=== PATIENT | female | born 1960 | race Caucasian/White ===

== ENCOUNTER 2023-11-17 15:26 | Emergency (ER) | payer OTHER, SELFPAY ==
[2023-11-17 15:31] VITALS: BP 153/99
[2023-11-17 15:52] LABS: % Basophils 0.8 % (0-2); % Immature Granulocytes 0.1 % (0-0.5); % Lymphocytes 25.9 % (20.5-51.1); % Monocytes 10.5 % (1.7-9.3); % Neutrophils 60.7 % (42.2-75.2); Absolute Basophils 0.1 10^3/uL (0-0.2); Absolute Eosinophils 0.2 10^3/uL (0-0.7); Absolute Monocytes 0.8 10^3/uL (0.1-0.6); Absolute Neutrophils 4.7 10^3/uL (1.4-6.5); Hematocrit 37.1 % (37.0-47.0); Hemoglobin 12.3 g/dL (12.0-16.0); Mean Corp Hgb Conc. 33.2 g/dL (33.0-37.0); Mean Corpuscular Hgb 29.4 pg (27.0-31.0); Mean Corpuscular Volume 88.5 fL (81.0-99.0); Mean Platelet Volume 10.2 fL (7.4-10.4); Nucleated Red Blood Cells % 0 %; Platelet Count 277 10^3/uL (130-400); Red Blood Cell Count 4.19 10^6/uL (4.20-5.40); White Blood Cell Count 7.7 10^3/uL (4.8-10.8)
[2023-11-17 16:07] LABS: ALT (SGPT) 22 U/L (0-35); AST (SGOT) 33 U/L (14-36); Albumin 4.5 g/dl (3.5-5.0); Alkaline Phosphatase 53 U/L (38-126); Blood Urea Nitrogen 18 mg/dl (7-17); Calcium 9.6 mg/dl (8.4-10.2); Carbon Dioxide 25 mmol/L (22-30); Chloride 107 mmol/L (98-107); Glucose 93 mg/dl (70-99); Lipase 33 U/L (23-300); Potassium 4.2 mmol/L (3.5-5.1); Sodium 137 mmol/L (135-145); Total Bilirubin 0.6 mg/dl (0.2-1.3); Total Protein 7.2 g/dl (6.3-8.2); eGFR > 60.00
[2023-11-17 18:10] LABS: Urine Albumin Negative (Neg - Trace); Urine Bilirubin Negative (Negative); Urine Character Clear (Clear); Urine Color Yellow; Urine Glucose Negative (Negative); Urine Ketone Negative (Negative); Urine Leukocyte Trace (Negative); Urine Nitrite Negative (Negative); Urine Occult Blood Negative (Negative); Urine Urobilinogen Negative (Neg - 1+)
[2023-11-17 18:13] VITALS: BP 143/94
[2023-11-17 18:16] VITALS: BMI 27.5
[2023-11-17 18:28] LABS: Urine Mucus Moderate; Urine Red Blood Cell 0-2 /HPF (0-2)
[2023-11-17 18:29] LABS: Urine Bacteria Many (Negative)
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
[2023-11-17 20:38] VITALS: BP 142/74
--- NOTE | 2023-11-17 20:57 | EDRN ---
Pt given discharge instructions. Pt needs to use an cee to schedule transport home - EDT to assist pt. Pt informed she is free to go when she secures a ride
== END 2023-11-17 21:08 | disposition home or self-care (01) ==
LOC: EMR 15:26
PROVIDERS: Emergency Medicine; Physician Assistant; EMERGENCY PHYSICIAN Emergency Medicine; FAMILY PHYSICIAN Family Medicine
DX: K59.00 Constipation, unspecified (principal); R10.9 Unspecified abdominal pain
CPT/HCPCS: 99284; 74177; 80053; 81003; 81015; 83690; 85025; 87077; 87086; 87186; Q9967

== ENCOUNTER 2024-03-12 09:10 | Emergency (ER) | payer OTHER, SELFPAY ==
[2024-03-12 09:15] VITALS: BP 150/104
--- NOTE | 2024-03-12 10:36 | ED.GENMED ---
History of Present Illness
General
Chief Complaint: Fall
Source: patient and other (friend)
Exam Limitations: none
Time Seen by Provider: 03/12/24 10:26
Nursing documentation reviewed up to this point in time: agreed with
History of Present Illness
History of Present Illness:
63-year-old female presents to the emergency department due to a fall. She tripped and hit her nose and face in the bathroom. She denies any loss of consciousness. She has a headache, does report that she had a headache prior to falling. She
also reports a nosebleed that is now controlled.
Past History
Past History
ED Past Medical History: Hypothyroidism
ED Past Surgical History: Other (Bladder mesh surgery)
Social History
Tobacco: Non-smoker
Alcohol: None
Drug: None
Review of Systems
Review of Systems
Allergies reviewed?: Yes
All Other Systems: Not applicable
Constitutional: Reports no symptoms
EENT: Reports other (Nosebleed)
Respiratory: Reports no symptoms
Cardiac: Reports no symptoms
ABD/GI: Reports no symptoms
: Reports no symptoms
Musculoskeletal: Reports no symptoms
Skin: Reports no symptoms
Endocrine: Reports no symptoms
Hematologic/Lymphatic: Reports no symptoms
Psychiatric: Reports no symptoms
Phy Exam
Physical Exam
Physical Exam:
Physical Exam
General: no apparent distress, not acutely ill
Neck: supple. no meningeal signs. normal posterior pharynx
Heart: s1/s2 regular rate and rhythm, no murmur. equal radial
pulses.
HEENT: Pupils equal round reactive to light, EOMI, ecchymosis around right eye, dried blood in bilateral nostrils
Lungs: no acute respiratory distress. clear bilaterally
Abdomen: normal bowel sounds. not tender. no CVAT
Neuro: alert and oriented. no focal neurological deficits cranial nerves II through XII intact
Skin: no rash
Psychiatric: well kept. interactive and cooperative
Extremities: no edema. no calf tenderness. negative homans. good distal pulses
Course
Orders/Labs/Results
Orders:
Orders
03/12/24 10:35
CT Facial Bones W/o Iv Contras Urgent
Comment:
Reason For Exam: fall, hit left eye, nose
CT Head W/o Iv Contrast Urgent
Comment:
Reason For Exam: fall, ecchymosis around right eye
Vital Signs
Initial and Last Documented VS:
Initial Vital Signs
Temp Pulse Resp BP Pulse Ox
98.3 F 88 16 150/104 94
03/12/24 09:15 03/12/24 09:15 03/12/24 09:15 03/12/24 09:15 03/12/24 09:15
Last Documented Vital Signs
Temp Pulse Resp BP Pulse Ox
98.3 F 88 16 150/104 94
03/12/24 09:15 03/12/24 09:15 03/12/24 09:15 03/12/24 09:15 03/12/24 09:15
MDM/Problems Addressed
Differential Diagnosis Includes:
Intracranial hemorrhage, nasal fracture, orbital fracture
MDM/Problems Addressed:
63-year-old female with fall, right orbital floor fracture, with no entrapment. No intracranial hemorrhage. Subtle nondisplaced fracture of nose. Stable for discharge. Follow-up with ENT. Amoxicillin prescribed.
*Radiology
Radiology exam reviewed: radiology read reviewed (CT head and face shows right orbital floor fracture, and nondisplaced fracture of right nasal bone)
*Pulse Oximetry
Patient hypoxic: no
*Critical Care Note
Total Time (30-74mins, 75-104mins- exclusive of procedures): Not Applicable
Patient Management
Social determinants of health affecting care: Living situation and Strong social support
Escalation/DeEscalation of care consider admission/obs:
Admit not indicated
ED Attending Note
-
Portions of this chart may have been created with voice recognition software.� Occasional wrong word or��sound alike� substitutions may have occurred due to the inherent limitations of voice recognition software.
Discharge Plan
Departure
Patient Disposition: Home (Routine Discharge)
Date of Disposition: 03/12/24
Time of Disposition: 12:54
Patient with high blood pressure during this ER visit?: Yes
Condition: Good
Discharge Problem:
Closed fracture nasal bone, Closed fracture of right orbital floor
Instructions: Facial Fracture (DC), Nose Fracture ED, BLOOD PRESSURE
Prescriptions:
New
amoxicillin 500 mg capsule
500 mg PO TID Qty: 21 0RF
No Action
levothyroxine [Synthroid] 200 mcg Tablet
200 mcg PO DAILY
bupropion HCl [Wellbutrin XL] 150 mg Tablet Extended Release 24 Hr
150 mg PO DAILY
polyethylene glycol 3350 [Miralax] 17 gram/dose powder
4 g PO DAILY Qty: 119 0RF
cephalexin 500 mg capsule
500 mg PO Q8H 5 Days Qty: 15 0RF
Referrals:
Silvestre Villasenor DO [Family Provider] -
Interventions
Interventions:
*Risk Screen - Suicide Last Done: 03/12/24 09:15
*General Assessment Last Done: 03/12/24 09:15
*Neglect/Abuse Screening Last Done: 03/12/24 11:02
ED- Fall Risk Assessment Last Done: 03/12/24 11:01
*ED COVID-19 Vaccine History Last Done: 03/12/24 09:15
ED-Musculoskeletal Assessment Last Done: 03/12/24 11:02
ED- Neurological Assessment Last Done: 03/12/24 11:01
ED-Skin Assessment Last Done: 03/12/24 11:01
Discharge Date and Time
Print Language: JORDANIAN
== END 2024-03-12 13:15 | disposition home or self-care (01) ==
LOC: EMR 09:10
PROVIDERS: EMERGENCY PHYSICIAN Emergency Medicine; FAMILY PHYSICIAN Family Medicine
DX: S02.2XXA Fracture of nasal bones, initial encounter for closed fracture (principal); S02.31XA Fracture of orbital floor, right side, initial encounter for closed fracture; S00.11XA Contusion of right eyelid and periocular area, initial encounter; W01.10XA Fall on same level from slipping, tripping and stumbling with subsequent striking against unspecified object, initial encounter; E03.9 Hypothyroidism, unspecified
CPT/HCPCS: 99284; 70450; 70486